=== PATIENT | male | born 1975 | race Caucasian/White ===

== ENCOUNTER 2018-01-09 15:12 | Emergency (ER) | payer OTHER ==
[2018-01-09 15:27] VITALS: BMI 25.7
[2018-01-09 15:39] VITALS: RESP 18; TEMP 98.1
[2018-01-09] MEDS ORDERED: Oxycodone/Acetaminophen 5/325 mg Tab PO STA (16:35)
--- NOTE | 2018-01-09 16:39 | ED PDOC ---
Arrival/HPI - General Chief Complaint: Abnormal Skin Integrity Time Seen by Provider: 01/09/18 16:00 Historian: Patient - History of Present Illness Narrative History of Present Illness (Text): 01/09/18 16:00 This 42 yo male who denies pmh, presents to this ED c/o left forehead and facial pain x 3 days. Patient stated he went to [facility] x 3 days ago, and he was Dx. with left facial shingles. Patient was prescribed Valtrex 1000mg tab PO TID x 10 days, Motrin, and Percocet for pain. Patient noted during ED visit at [facility], a slit lamp ocular test was performed. Patient denies fever, diplopia, dizziness, dysarthria, weakness, paresthesias, earache, dysphagia, or abnormal gait. Time/Duration: Other (see hpi) Context: Home Past Medical History - Provider Review Nursing Documentation Reviewed: Yes - Infectious Disease Hx of Infectious Diseases: None - Psychiatric Hx Substance Use: No Family/Social History - Physician Review Nursing Documentation Reviewed: Yes Family/Social History: Other (noncontributory) Smoking Status: Current Some Days Smoker Hx Alcohol Use: Yes Frequency of alcohol use: Socially Hx Substance Use: No Allergies/Home Meds Allergies/Adverse Reactions: Allergies No Known Allergies Allergy (Verified 01/09/18 15:27) Home Medications: Home Meds Medication Instructions Recorded Confirmed Oxycodone HCl/Acetaminophen 1 tab PO Q6 PRN 01/09/18 01/09/18 [Oxycodone-Acetaminophen 5-325] Prednisone [Deltasone] 40 mg PO DAILY 01/09/18 01/09/18 valACYclovir [Valtrex] 1 gm PO TID 01/09/18 01/09/18 Review of Systems - Review of Systems Constitutional: Normal. absent: Fatigue, Weight Change, Fevers Eyes: Normal. absent: Vision Changes, Photophobia, Eye Pain ENT: Normal Respiratory: Normal Cardiovascular: Normal Gastrointestinal: Normal Genitourinary Male: Normal Musculoskeletal: Normal Skin: Rash (left facial, left scalp painful rash) Neurological: Normal Endocrine: Normal Hemo/Lymphatic: Normal Psychiatric: Normal Physical Exam Vital Signs Temp Pulse Resp BP Pulse Ox 01/09/18 15:13 98.1 F 77 18 130/82 97 Temperature: Afebrile Blood Pressure: Normal Pulse: Regular Respiratory Rate: Normal Appearance: Positive for: Well-Appearing, Non-Toxic, Comfortable Pain Distress: None Mental Status: Positive for: Alert and Oriented X 3 - Systems Exam Head: Present: Atraumatic, Normocephalic, Other ((+) left sided scalp, face vesicular rash. no erythema, or purulent discharge) Pupils: Present: PERRL, Other (Fluorescine stain was negative. No dendritic corneal lesion. No corneal FB or abrasion. ) Extroacular Muscles: Present: EOMI. No: Entrapment Conjunctiva: Present: Normal, Other (Mild periorbital swelling, no erythema) Ears: Present: Normal, NORMAL TM, Normal Canal. No: Erythema, TM Bulging, Fluid , TM Perf Pharnyx: Present: Normal. No: ERYTHEMA, EXUDATE, TONSILS ENLARGED Neck: Present: Normal Range of Motion. No: Meningeal Signs, MIDLINE TENDERNESS , Paraspinal Tenderness Upper Extremity: Present: Normal Inspection, Normal ROM Lower Extremity: Present: Normal Inspection, Normal ROM Neurological: Present: GCS=15, CN II-XII Intact, Speech Normal, Motor Func Grossly Intact, Normal Sensory Function, Normal Cerebellar Funct, Gait Normal, Memory Normal Skin: Present: Warm, Dry, Rashes (see head), Normal Color Psychiatric: Present: Alert, Oriented x 3, Normal Insight, Normal Concentration Medical Decision Making ED Course and Treatment: 01/09/18 16:48 Dr. West ED attending came to examine patient . He agrees with plan. Re-evaluation. Patient feels better. Discussed results and plan with patient who expresses understanding. All questions answered and there is agreement with the plan to discharge home with instructions. Patient stable for discharge. Return if symptoms persist or worsen. 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 I reviewed the risk of addiction if he continues taking Percocet. To return to ED if symptoms worsen, vision changes, or fever. Re-evaluation Time: 16:49 Reassessment Condition: Re-examined, Improved Disposition/Present on Arrival - Present on Arrival Any Indicators Present on Arrival: No History of DVT/PE: No History of Uncontrolled Diabetes: No Urinary Catheter: No History of Decub. Ulcer: No History Surgical Site Infection Following: None - Disposition Have Diagnosis and Disposition been Completed?: Yes Diagnosis: Shingles rash Disposition: HOME/ ROUTINE Disposition Time: 16:51 Patient Plan: Discharge Condition: GOOD Discharge Instructions (ExitCare): Shingles (ED) Additional Instructions: Call Dr. Barker, Eye Doctor for follow up visit in 1-2 days. Continue with Valtrex given at [facility] for shingles. Take Percocet at bedtime as needed for pain with food. Take Motrin for pain and inflammation. Apply Bactroban ointment on face and scalp. Apply Erythromycin ophthalmic ointment on eyelids. Return to emergency if pain worsen, fever. Make sure to also call Clinic. Prescriptions: Erythromycin 0.5% [Ilytocin] 1 applic OS BID #1 tube Ibuprofen [Motrin] 600 mg PO Q8 PRN #20 tab PRN Reason: Pain, Severe (8-10) Mupirocin 2% Ointment [Bactroban Ointment] 1 applic TOP BID #1 tube oxyCODONE/Acetaminophen [Percocet 5/325 mg Tab] 1 ea PO Q6H PRN #5 tab PRN Reason: Pain, Severe (8-10) Referrals: Michele Barkre MD [Staff Provider] - Follow up with primary Bonny Esposito MD [Staff Provider] - Follow up with primary [facility] [Outside] - Follow up with primary Forms: [facility] ([place]), WORK NOTE
[2018-01-09 17:04] VITALS: BP 129/78; PULSE 75; O2SAT 99
== END 2018-01-09 17:04 | disposition home or self-care (01) ==
LOC: ED 15:12
DX: B02.9 Zoster without complications (principal)